=== PATIENT | male | born 1940 | race Caucasian/White ===

== ENCOUNTER → 2021-11-08 | Outpatient (CLI) | payer MEDICARE, OTHER ==
[~2021-11-08] MED LIST: AMLO-258 PO; ATOR40TA71 PO; CELE-84 PO; CETI10TA87 PO; LOSA100T58 PO; METR59LO TP; OXYB5TAB15 PO; SERT-439 PO; TAMS0.4C32 PO
== END | disposition home or self-care (01) ==
LOC: RAH 10:49
PROVIDERS: ATTEND Orthopaedic Surgery
DX: S83.242A Other tear of medial meniscus, current injury, left knee, initial encounter (principal); S83.282A Other tear of lateral meniscus, current injury, left knee, initial encounter; M25.462 Effusion, left knee; M21.862 Other specified acquired deformities of left lower leg; X58.XXXA Exposure to other specified factors, initial encounter; Y93.89 Activity, other specified; Y92.89 Other specified places as the place of occurrence of the external cause; Y99.8 Other external cause status
CPT/HCPCS: 73721

== ENCOUNTER → 2021-12-14 | Outpatient (CLI) | payer MEDICARE, OTHER | END | disposition home or self-care (01) | LOC: RAH 12:27 | PROVIDERS: ATTEND Orthopaedic Surgery | DX: M17.12 Unilateral primary osteoarthritis, left knee (principal); M16.12 Unilateral primary osteoarthritis, left hip; M19.072 Primary osteoarthritis, left ankle and foot; I87.8 Other specified disorders of veins; M77.32 Calcaneal spur, left foot | CPT/HCPCS: 73700 ==

== ENCOUNTER 2023-09-03 21:17 | Emergency (ER) | payer MEDICARE, OTHER ==
[~2023-09-03] VITALS: Ht 172.7 cm; Wt 81.6 kg
[~2023-09-03 21:17] MED LIST changes: -CELE-84 PO; -CETI10TA87 PO; +DULO60CA64 PO; +GABA300C PO; -LOSA100T58 PO; +LOSA100T59 PO; -METR59LO TP; +OXYB-66 PO; -OXYB5TAB15 PO; -SERT-439 PO; +SILD100T PO; +TAMS-1 PO; -TAMS0.4C32 PO
[2023-09-03] MEDS ORDERED: CLIN-141 PO (22:10)
[2023-09-03 22:23] VITALS: BP 152/81; PULSE 62; RESP 18; O2SAT 98
[2023-09-03] MEDS ORDERED: CLINDAMYCIN 150 MG CAP PO ONE (22:30)
== END 2023-09-03 22:38 | disposition home or self-care (01) ==
LOC: EDH 21:17
DX: K05.10 Chronic gingivitis, plaque induced (principal); E78.00 Pure hypercholesterolemia, unspecified; I10 Essential (primary) hypertension; Z79.899 Other long term (current) drug therapy; Z88.0 Allergy status to penicillin; Z85.46 Personal history of malignant neoplasm of prostate